=== PATIENT | male | born 1965 | race American Indian/Alaskan Native ===

== ENCOUNTER 2024-09-16 18:39 | Emergency (ER) | payer MEDICAID, SELFPAY ==
[2024-09-16 18:39] VITALS: BMI 34.7
--- NOTE | 2024-09-16 18:44 | EKG_ITS ---
[facility] Test Date: 2024-09-16 Pat Name: PIERRE ARIAS Department: Room: - Gender: Male [employer]: : 1965 Requested By: Gabriel Delgado Order Number: [id number] Reading MD: Gabriel Delgado Measurements Intervals [place] Rate: 77 P: 37 NH: 170 QRS: -63 QRSD: 113 T: 75 QT: 359 QTc: 406 Interpretive Statements SINUS RHYTHM LEFT AXIS DEVIATION [QRS AXIS < -30] PATTERN CONSISTENT WITH PULMONARY DISEASE INCOMPLETE RIGHT BUNDLE BRANCH BLOCK [90+ ms QRS DURATION, TERMINAL R IN V1/V2, 40+ ms S IN I/aVL/V4/V5/V6] SEPTAL MYOCARDIAL INFARCTION , PROBABLY OLD [40+ ms Q WAVE IN V1/V2] Compared to ECG 08/26/2023 00:21:12 Myocardial infarct finding now present /store/S0/[id number].pdf
[2024-09-16 18:55] VITALS: BP 155/85; PULSE 84; RESP 24; TEMP 36.8; O2SAT 94
--- NOTE | 2024-09-16 19:03 | XR_ITS ---
Examination: PA chest single view Technique: Upright PA chest single view Exam date and time: September 17, 2019 0520 hrs. Indications: Coughing shortness of breath beginning 3 days ago Findings: Mild pneumonia left base Minor prominence of ventricle No pulmonary edema Impression: No pneumonia left base
--- NOTE | 2024-09-16 19:07 | PD.EDURI ---
Upper Respiratory Inf. RME/HPI General Chief Complaint: Flu Like Symptoms Stated Complaint: COUGH, HARD TO BREATHE Time Seen by Provider: 09/16/24 19:02 Arrival date/time: 09/16/24 18:39 58M with history of CAD/NC presents to ED with several days of cough and SOB. Patient's has similar symptoms, but she got better. Patient denies CP. Limitations: no limitations Related Data Previous Rx's ?Medication ?Instructions ?Recorded naproxen 500 mg tablet 500 mg PO BID #30 tabs 08/26/23 clindamycin HCl 300 mg capsule 300 mg PO QID #40 caps 10/24/23 albuterol sulfate 90 mcg/actuation 2 puff inhalation Q6H PRN 11/04/23 aerosol inhaler shortness of breath or wheezing #8.5 grams prednisone 50 mg tablet 50 mg PO QDAY #7 tabs 11/04/23 albuterol sulfate 90 mcg/actuation 2 puff inhalation Q6H PRN 09/16/24 aerosol inhaler (Ventolin HFA) shortness of breath or wheezing #8.5 grams azithromycin 250 mg tablet See Rx Instructions PO .COMPLEX #6 09/16/24 tabs Allergies Allergy/AdvReac Type Severity Reaction Status Date / Time Penicillins Allergy Unknown Verified 09/16/24 18:42 Review of Systems Review of Systems Systems Reviewed: All systems reviewed, normal except as documented Constitutional Constitutional: Reports system reviewed and no additional complaints, except as documented, Denies fever(s) and Denies headache(s) ENT Ears, Nose, Mouth, and Throat: Denies disequilibrium and Denies headache(s) Cardiovascular Cardiovascular: Reports system reviewed and no additional complaints, except as documented, Denies chest pain and Reports dyspnea Respiratory Respiratory: Reports system reviewed and no additional complaints, except as documented, Reports as per HPI, Reports cough and Reports dyspnea Gastrointestinal Gastrointestinal: Reports system reviewed and no additional complaints, except as documented, Denies abdominal pain, Denies nausea and Denies vomiting Neurologic Neurologic: Reports system reviewed and no additional complaints, except as documented, Denies confusion, Denies disequilibrium and Denies headache(s) Psychiatric Psychiatric: Denies confusion Past Medical History Social History SMOKING STATUS: Never smoker SUBSTANCE USE: does not use ED Exam General Limitations: Present no limitations General appearance: Present alert and in no apparent distress Head Head exam: Present atraumatic Eye Eye exam: Present normal appearance, PERRL and EOMI ENT ENT exam: Present normal exam, normal oropharynx and mucous membranes moist Neck Neck exam: Present normal inspection, full ROM and trachea midline Chest Chest inspection: Present normal inspection and symmetric chest wall rise Respiratory Respiratory exam: Present normal lung sounds bilaterally Cardiovascular Cardiovascular exam: Present regular rate, normal rhythm and normal heart sounds Abdominal Exam Abdominal exam: Present soft and normal bowel sounds Extremities Exam Extremities exam: Present normal inspection and full ROM Back Exam Back exam: Present normal inspection and full ROM Neurological Exam Neurological exam: Present alert, oriented X3 and CN II-XII intact Psychiatric Psychiatric exam: Present normal affect and normal mood Skin Skin exam: Present warm, dry, intact and normal color Course Quality Measures none Orders Category Date Time Status Bedside COVID-19 Antigen Test NOW Care 09/16/24 18:44 Completed Bedside Influenza A&B Antigen Test NOW Care 09/16/24 18:44 Completed EKG (ED ONLY) *Do not use* NOW Care 09/16/24 18:45 Completed EKG (ED Only) Stat Exams 09/16/24 18:44 Draft XR chest 1V portable Stat Exams 09/16/24 19:03 Completed B-Type Natriuretic Peptide Stat Lab 09/16/24 19:32 Completed CBC Stat Lab 09/16/24 19:32 Completed Comprehensive Metabolic Panel Stat Lab 09/16/24 19:32 Completed Lactate (Lactic Acid) Stat Lab 09/16/24 19:32 Completed Magnesium Stat Lab 09/16/24 19:32 Completed Procalcitonin Stat Lab 09/16/24 19:32 Completed Troponin I Stat Lab 09/16/24 19:32 Completed Albuterol/Ipratr Rt Alondra [Duoneb Rt Alondra] Med 09/16/24 19:04 Discontinued 3 ml INH X1 ONE Dexamethasone Inj [Decadron Inj] Med 09/16/24 20:28 Discontinued 10 mg PO X1 ONE Vital Signs Vital signs: Vital Signs Temperature 98.2 F 09/16/24 18:55 Pulse Rate 84 09/16/24 18:55 Respiratory Rate 24 H 09/16/24 18:55 Blood Pressure 155/85 H 09/16/24 18:55 Pulse Oximetry (%) 94 L 09/16/24 18:55 Oxygen Delivery Method Room Air 09/16/24 18:55 O2 at 94% on RA Upper Respiratory Infection MDM Narrative MDM Narrative:: 58M with history of CAD/NC presents to ED with several days of cough and SOB. Patient's has similar symptoms, but she got better. Patient denies CP. Physical exam reveals clear lungs. RRR. Increased WOB. Patient is afebrile, calm, and alert. EKG shows RBBB, which was present on previous EKG here. CXR mild PNA. Minimal leukocytosis. CMP normal. Trop and BNP normal. Procal/lactate normal. Breathing tx helped a bit, but steroids helped more. Gave single long-acting dose of steroid. Will not prescribe any given no history of asthma/COPD. Will give ABX and counseled to follow-up with PCP if more steroids are needed. Patient data External records reviewed:: [facility] previous records Clinical information provided by:: patient Social determinants that could affect healthcare access:: none Patient has the following chronic illnesses:: CAD/NC How is presenting disease/condition affected by chronic disease/condition?: exacerbated by Evaluation data The following diagnostics were reviewed and interpreted by me:: lab results, radiology exam(s) and EKG tracing(s) Lab and/or radiology exams considered but not ordered:: ordered Interpretation Summary: above Medications / Prescriptions Medications or Prescriptions considered but not ordered:: ordered Medication administrations:: Medication Administration History Discontinued Medications Albuterol/Ipratropium (Albuterol/Ipratropium (Duoneb) Rt Alondra 3 Ml Nebu) 3 ml INH X1 ONE Stop: 09/16/24 19:05 Last Admin: 09/16/24 19:23 Dose: 3 ml Documented By: APRYL Dexamethasone Sodium Phosphate (Dexamethasone Sod Phos Inj 10 Mg/Ml Vial) 10 mg PO X1 ONE Stop: 09/16/24 20:29 Last Admin: 09/16/24 20:35 Dose: 10 mg Documented By: LIT above Consultations Consultation(s) initiated? (list below): No Diagnosis Upper Respiratory Differential Diagnosis: upper respiratory infection, croup, otitis media, sinusitis, viral infection, bronchitis, influenza, pharyngitis and other (CAP, ) Most likely diagnosis given after review of the tests above:: CAP Admission Indicated Admission indicated?: not indicated Admission Request Was there a request for admission?: No Disposition Plan Disposition Plan: Discharge Discharge Attestation Discharge Attestation: The patient and all family members were given an opportunity to ask questions and understood the discharge instructions. Discharge instructions specifically effects, indications for sooner follow up or return to the emergency department, and the expected course of current diagnosis. Patient condition: Stable Discharge Plan Plan Patient Disposition: HOME (Self Care) Disposition Comment: Stable Prescriptions/Referrals Prescriptions/Med Rec: New azithromycin 250 mg tablet See Rx Instructions .ROUTE .COMPLEX Qty: 6 0RF Rx Instructions: For 250 mg dose pack: take 500 mg today (day 1), then 250 mg for 4 days (days 2-5) albuterol sulfate [Ventolin HFA] 90 mcg/actuation HFA aerosol inhaler 2 puff inhalation Q6H PRN (Reason: shortness of breath or wheezing) Qty: 8.5 0RF No Action naproxen 500 mg tablet 500 mg PO BID Qty: 30 0RF prednisone 50 mg tablet 50 mg PO QDAY Qty: 7 0RF albuterol sulfate 90 mcg/actuation HFA aerosol inhaler 2 puff inhalation Q6H PRN (Reason: shortness of breath or wheezing) Qty: 8.5 0RF clindamycin HCl 300 mg capsule 300 mg PO QID Qty: 40 0RF Referrals: No Primary/Family,Physician [Primary Care Provider] - In 1 week Problem List Clinical Impression: CAP (community acquired pneumonia) Patient/Caregiver Discharge Instructions Education Materials: ED Pneumonia (Adult) Additional Instructions: Please follow-up with PCP within 24-48 hours and return immediately if symptoms worsen. Print Language: Georgian Stand Alone Forms: Work/School Release, Patient Portal Info Letter PA/DEONDRE Supervising Physician DOM/DEONDRE Supervising Physician: Dr. Haywood
[2024-09-16] MEDS: ALBUTEROL/IPRATROPIUM (Duoneb) RT SOL 3 ML NEBU INH (19:23)
[2024-09-16 19:24] VITALS: PULSE 86; RESP 18; O2SAT 98
[2024-09-16 19:55] LABS: Lactate (Lactic Acid) 1.6 mMol/L (0.4-2.0)
[2024-09-16 19:58] LABS: Basophils # (Auto) 0.1 Thou/mm3 (0.0-0.2); Basophils % (Auto) 1 % (0-2.5); Eosinophils # (Auto) 0.3 Thou/mm3 (0.0-0.5); Eosinophils % (Auto) 3 % (0-10); Hematocrit 46.6 % (41.0-53.0); Hemoglobin 15.8 g/dL (13.5-16.0); Immature Granulocytes % (Auto) 1 % (0-0); Immature Granulocytes Auto 0.06 Thou/mm3 (0.00-0.00); Lymphocytes # (Auto) 2.8 Thou/mm3 (1.0-4.8); Lymphocytes % (Auto) 26 % (10-50); Mean Corpuscular HGB Conc 33.9 g/dl (31.0-37.0); Mean Corpuscular Hemoglobin 29.8 pg (25.0-35.0); Mean Corpuscular Volume 88 fL (80-100); Monocytes # (Auto) 0.7 Thou/mm3 (0.0-0.8); Monocytes % (Auto) 6 % (0-12); Neutrophils # (Auto) 6.9 Thou/mm3 (1.8-7.7); Neutrophils % (Auto) 64 % (37-80); Nucleated Red Blood Cell % 0 /100 WBC (0); Platelet Count 345 Thou/mm3 (140-440); RDW Standard Deviation 41.1 fL (35.1-43.9); White Blood Count 10.8 Thou/mm3 (3.8-10.6)
[2024-09-16 20:14] LABS: B-Type Natriuretic Peptide < 20 pg/mL (0-100)
[2024-09-16 20:17] VITALS: BP 133/84; PULSE 72; RESP 20; TEMP 36.7; O2SAT 94
[2024-09-16 20:23] LABS: Alanine Aminotransferase 24 U/L (10-49); Albumin, Serum 4.6 gm/dL (3.5-5.0); Albumin/Globulin Ratio 1.5 (1.2-2.2); Alkaline Phosphatase 115 U/L (46-116); Anion Gap 9 (7-16); Aspartate Amino Transferase 24 U/L (0-34); BUN/Creatinine Ratio 11 Ratio (12-20); Bilirubin,Total 0.5 mg/dL (0.3-1.2); Blood Urea Nitrogen 12 mg/dL (9-23); Calcium 9.2 mg/dL (8.3-10.6); Calcium (Corrected) 9.2 mg/dL (8.5-10.1); Carbon Dioxide 23.5 mMol/L (20.0-31.0); Chloride 107 mMol/L (98-107); Creatinine (Component) 1.1 mg/dL (0.6-1.3); Estimated Creatinine Clearance 86.4 mL/min (>60); Globulin 3.1 gm/dL (2.3-3.5); Glucose 118 mg/dL (74-106); Magnesium 1.8 mg/dL (1.6-2.6); Osmolality,Calculated 278 (275-295); Potassium 3.9 mMol/L (3.4-5.1); Procalcitonin 0.12 ng/ml (0.0-0.49); Sodium 139 mMol/L (136-145); Total Protein 7.7 gm/dL (5.7-8.2); Troponin I < 0.020 ng/mL (0.0-0.045); eGFR > 60 See Note
[2024-09-16] MEDS: DEXAMETHASONE SOD PHOS INJ 10 MG/ML VIAL PO (20:35)
[2024-09-16 21:42] VITALS: BP 144/87; PULSE 69; RESP 19; TEMP 36.7; O2SAT 97
== END 2024-09-16 21:53 | disposition home or self-care (01) ==
PROVIDERS: Physician Assistant; Emergency Provider Emergency Medicine
DX: J18.9 Pneumonia, unspecified organism (principal)
CPT/HCPCS: 36415; 71045; 80053; 83605; 83735; 83880; 84145; 84484; 85025; 87400; 87811; 93005; 94640; 99283; A9270; J1100

== ENCOUNTER 2025-01-11 17:50 | Emergency (ER) | payer SELFPAY ==
--- NOTE | 2025-01-11 18:25 | PC.NURSE ---
no answer when called to be vitaled
--- NOTE | 2025-01-11 19:09 | PC.NURSE ---
NO ANSWER AT ER LOBBY OR OUTSIDE ER TO BE SEEN BY PROVIDER.
== END 2025-01-11 19:11 | disposition left against medical advice (07) ==
PROVIDERS: Emergency Provider Emergency Medicine
DX: Z53.21 Procedure and treatment not carried out due to patient leaving prior to being seen by health care provider (principal)
CPT/HCPCS: 99282